=== PATIENT | female | born 1975 | race Caucasian/White ===

== ENCOUNTER 2022-03-02 05:49 | Day surgery (SDC) | payer OTHER ==
[~2022-03-02] VITALS: Ht 162.6 cm; Wt 74.8 kg
[2022-03-02] MEDS ORDERED: fentaNYL citrate 0.05 MG/ML VIAL ONE (07:22)
[2022-03-02] MEDS ORDERED: diphenhydrAMINE 50 MG/ML VIAL ONE (07:22)
[2022-03-02] MEDS ORDERED: MIDAZOLAM 5 MG/5 ML VIAL ONE (07:23)
== END 2022-03-02 10:10 | disposition home or self-care (01) ==
LOC: MDS 05:49 → MMU 05:51 → MDS 10:10
PROVIDERS: ATTEND Internal Medicine Gastroenterology
DX: Z12.11 Encounter for screening for malignant neoplasm of colon (principal); R13.10 Dysphagia, unspecified; I10 Essential (primary) hypertension; Z20.822 Contact with and (suspected) exposure to COVID-19; Z90.89 Acquired absence of other organs
CPT/HCPCS: 43239; 45378; 81025; 87426; 88305; J2250; J3010; J7030; J1200

== ENCOUNTER 2022-04-06 06:16 | Day surgery (SDC) | payer OTHER ==
[~2022-04-06] VITALS: Ht 160 cm; Wt 71.7 kg
[2022-04-06] MEDS ORDERED: diphenhydrAMINE 50 MG/ML VIAL ONE (07:49)
[2022-04-06] MEDS ORDERED: fentaNYL citrate 0.05 MG/ML VIAL ONE (07:49)
[2022-04-06] MEDS ORDERED: LIDOCAINE 2% 100 MG/5 ML UJET TP ONE (07:50)
[2022-04-06] MEDS ORDERED: MIDAZOLAM 2 MG/2 ML VIAL ONE (07:50)
[2022-04-06] MEDS ORDERED: MIDAZOLAM 2 MG/2 ML VIAL IVP ONE (13:45)
[2022-04-06] MEDS ORDERED: fentaNYL citrate 0.05 MG/ML VIAL IVP ONE (13:45)
== END 2022-04-06 10:04 | disposition home or self-care (01) ==
LOC: MOR 06:16 → MMU 06:16 → MOR 10:04
PROVIDERS: ATTEND Internal Medicine Gastroenterology
DX: Z09 Encounter for follow-up examination after completed treatment for conditions other than malignant neoplasm (principal); K57.30 Diverticulosis of large intestine without perforation or abscess without bleeding; E03.9 Hypothyroidism, unspecified; R05.3 Chronic cough; Z85.850 Personal history of malignant neoplasm of thyroid; Z98.82 Breast implant status; Z90.49 Acquired absence of other specified parts of digestive tract; Z79.899 Other long term (current) drug therapy; Z20.822 Contact with and (suspected) exposure to COVID-19
CPT/HCPCS: 45378; 81025; 87426; J2250; J3010; J1200